=== PATIENT | female | born 1980 | race Caucasian/White ===

== ENCOUNTER 2020-04-20 22:40 | Emergency (ER) | payer SELFPAY ==
[~2020-04-20] VITALS: Ht 154.9 cm; Wt 75.4 kg
--- NOTE | 2020-04-21 00:01 | NUR ---
PT CAME INTO ED TODAY DUE TO WORSENING LEFT LOWER ABDOMINAL QUADRANT PAIN. STATES SHE HAS AN OVARIAN CYSTS THAT SHE FOUND OUT ABOUT IN 2002. PT STATES THE PAIN IS WORSE NOW AND THAT IT GOES AWAY ON HER PERIOD THEN COMES BACK WHEN HER PERIOD STOPS. PT NAD, P/W/D, DENIES ANY DIZZINES, ANOx4. AMBULATED TO AND FROM RESTROOM WITH A SMOOTH AND STEADY GAIT TO OBTAIN URINE SAMPLE. WCTM PT PLACED ON SPO2/BP MONITORING. LAW VALLES AT FOR EVAL AND POC.
[2020-04-21 00:17] LABS: MICROSCOPIC NOT IND
--- NOTE | 2020-04-21 01:12 | NUR ---
PT RESTING IN STEVEN BEGUM, UPDATED ON POC, VSS. WATCHING TV, NO CHANGE IN CONDITION. WCTM. WAITING ON US.
--- NOTE | 2020-04-21 01:57 | NUR ---
pt in US at this time.
[2020-04-21 02:48] LABS: HCG UR SG 1.023 (1.003-1.030)
[2020-04-21 02:52] VITALS: BP 104/59
--- NOTE | 2020-04-21 02:52 | NUR ---
PT RESTING ON GURNEY, APPEARS COMFORTABLE, WAITING FOR US READ. NAD, VSS, P/W/D. WCTM.
--- NOTE | 2020-04-21 03:19 | NUR ---
ct pending lab/creatine.
--- NOTE | 2020-04-21 03:29 | NUR ---
IV SET FOR CT. PT RESTING ON GURNEY, SIGNIFICANT OTHER AT BS. NAD. WAITING FOR ADDITIONAL TESTING RESULTS. WCTM.
--- NOTE | 2020-04-21 03:49 | NUR ---
Patient AND SIGNIFICANT OTHER INFORMED OF RISKS OF LEAVING WITHOUT WAITING FOR FINAL TEST RESULTS AND DIAGNOSIS, PT SIGNED AMA FORM. DENIES ADDITIONAL NEEDS AT THIS TIME. NAD. Patient ambulatory with steady gait.
== END 2020-04-21 03:52 | disposition home or self-care (01) ==
LOC: ED 04-21 03:10
DX: G89.29 Other chronic pain (principal); R10.32 Left lower quadrant pain
CPT/HCPCS: 76830; 81003; 81025; 99285